=== PATIENT | male | born 1945 | race Caucasian/White ===

== ENCOUNTER → 2018-02-03 08:17 | Outpatient (CLI) | payer MEDICARE ==
[2014-10-25 14:10] VITALS: BMI 23.2
[~2018-02-03 08:17] MED LIST: BUTALB-APAP-CA1 EACH PO; FLOMAX0.4 MG PO; FLUTICASONE PRO16 GM; HYDROCODONE-APA1 TAB PO; IPRAT-ALBUT 0.5-3 ML UPD; LEVAQUIN PREMI750 MG PO; PRILOSEC20 MG PO; PROVENTIL HFA6.7 GM INH; REMERON15 MG PO; RESTORIL15 MG PO; SINGULAIR10 MG PO; TESSALON PERLE100 MG PO; VALIUM5 MG PO; VENTOLIN HFA18 GM INH
== END | disposition home or self-care (01) ==
LOC: D.RT 08:17
DX: J44.9 Chronic obstructive pulmonary disease, unspecified (principal)